=== PATIENT | female | born 1950 | race African-American/Black ===

== ENCOUNTER 2024-10-27 15:09 | Observation (INO) ==
[2024-10-27 15:44] LABS: ABS Basophils 0.1 10^3/uL (0.0-0.1); ABS Lymphocytes 1.7 10^3/uL (1.0-4.8); ABS Monocytes 0.4 10^3/uL (0.0-0.9); ABS Neutrophils 3.2 10^3/uL (1.5-7.6); Eosinophil % 0.2 %; Hematocrit 35.6 % (35-45); Hemoglobin 11.6 g/dL (11.5-14.3); INR 1.04 (0.85-1.14); Lymphocyte % 31.3 %; Mean Corpuscular Hgb Conc 32.4 g/dL (31-36); Mean Corpuscular Volume 77.2 fL (80-97); Mean Platelet Volume 7.6 fL (7.5-11.2); Nucleated Red Blood Cells % 0.1 %/100WBC (0.0-0.8); Platelet Count 306 10^3/uL (150-450); Red Blood Count 4.62 10^6/uL (3.63-4.92); Red Cell Distribution Width 15.8 % (12-17); White Blood Count 5.4 10^3/uL (3.8-11.8)
[2024-10-27 16:38] LABS: Albumin 4.2 g/dL (3.5-5.7); Albumin/Globulin Ratio 1.4 (1-3); Calcium 9.4 mg/dL (8.6-10.3); Creatinine, Serum 1.01 mg/dL (0.51-0.95); Globulin 2.9 g/dL (2-4); Potassium 4.1 mmol/L (3.5-5.0); Total Bilirubin 0.6 mg/dL (0.2-1.0); Total Protein 7.1 g/dL (6.4-8.9); eGFR CKD-EPI 58.4 (>60)
[2024-10-27 17:10] LABS: High Sensitivity Troponin 1 Hr 8 pg/mL (<15)
[2024-10-27] MEDS ORDERED: Sulfur Hexaflouride MICROSPHR 25 MG VIAL IV PRN (23:49)
[2024-10-28] MEDS: Enoxaparin 40 MG/0.4 ML SYR SUBCUT SCH (06:03)
[2024-10-28 08:03] LABS: ABS Lymphocytes 1.9 10^3/uL (1.0-4.8); ABS Monocytes 0.4 10^3/uL (0.0-0.9); ABS Neutrophils 2.1 10^3/uL (1.5-7.6); ABS Nucleated RBC 0.01 10^3/ul; Eosinophil % 0.8 %; Hematocrit 30.6 % (35-45); Hemoglobin 10.1 g/dL (11.5-14.3); Mean Corpuscular Hemoglobin 25.8 pg (27-33); Mean Corpuscular Hgb Conc 33.1 g/dL (31-36); Mean Platelet Volume 7.5 fL (7.5-11.2); Nucleated Red Blood Cells % 0.2 %/100WBC (0.0-0.8); Platelet Count 250 10^3/uL (150-450); Red Blood Count 3.92 10^6/uL (3.63-4.92); Red Cell Distribution Width 15.6 % (12-17); White Blood Count 4.5 10^3/uL (3.8-11.8)
[2024-10-28 08:38] LABS: Calcium 8.9 mg/dL (8.6-10.3); Creatinine, Serum 0.86 mg/dL (0.51-0.95); Phosphorus 3.3 mg/dL (2.5-5.0); Potassium 3.7 mmol/L (3.5-5.0); eGFR CKD-EPI 70.8 (>60)
[2024-10-28] MEDS: Ferric Gluconate IV 250 MG in NS 0.9% 250 ml 200 ML IVPB SCH (14:31)
[2024-10-29 09:39] LABS: ABS Lymphocytes 1.4 10^3/uL (1.0-4.8); ABS Monocytes 0.4 10^3/uL (0.0-0.9); ABS Neutrophils 2.6 10^3/uL (1.5-7.6); ABS Nucleated RBC 0.01 10^3/ul; Eosinophil % 0.5 %; Hematocrit 35.5 % (35-45); Hemoglobin 11.9 g/dL (11.5-14.3); Lymphocyte % 32.1 %; Mean Corpuscular Hgb Conc 33.5 g/dL (31-36); Mean Corpuscular Volume 77.4 fL (80-97); Mean Platelet Volume 7.9 fL (7.5-11.2); Nucleated Red Blood Cells % 0.2 %/100WBC (0.0-0.8); Platelet Count 258 10^3/uL (150-450); Red Blood Count 4.58 10^6/uL (3.63-4.92); Red Cell Distribution Width 15.7 % (12-17); White Blood Count 4.5 10^3/uL (3.8-11.8)
[2024-10-29 10:03] LABS: Creatinine, Serum 0.82 mg/dL (0.51-0.95); Magnesium 2.2 mg/dL (1.9-2.7); Potassium 4.1 mmol/L (3.5-5.0)
[2024-10-29] MEDS: Iohexol 350 (CONTRAST) 500 ML MDV IV ONE (11:36)
[2024-10-30] MEDS ORDERED: Aminophylline 25 MG/ML VIAL ONE (09:53)
[2024-10-30] MEDS ORDERED: Regadenoson 0.4 MG/5 ML SYRINGE ONE (09:53)
[2024-10-30 13:56] VITALS: BP 114/81
== END 2024-10-30 15:00 | disposition home or self-care (01) ==
LOC: EDHOLD 15:09 → ED 15:09 → SUATTDRO 22:12 → MEDTELE 10-28 00:40
PROVIDERS: ADMIT Internal Medicine; ATTEND Internal Medicine